=== PATIENT | male | born 1975 | race Caucasian/White ===

== ENCOUNTER 2018-08-23 22:59 | Emergency (ER) | payer OTHER ==
[~2018-08-23] VITALS: Ht 180.3 cm; Wt 108.2 kg
[2018-08-23 23:15] VITALS: Ht 180.3 cm; Wt 108.2 kg
[2018-08-24 00:02] LABS: HEMATOCRIT 43.5 % (42.0-54.0); HEMOGLOBIN 15.2 g/dL (13.5-17.5); LYMPHOCYTES 35.2 % (15-50); MCH 32.6 pg (26.0-34.0); MCHC 34.9 g/dL (31.0-37.0); MCV 93.3 fL (80.0-100.0); MEAN PLATELET VOLUME 9.6 fL (7.4-10.4); NEUTROPHILS 62.4 % (40-80); PLATELET COUNT 225 10x3/uL (130-400); RBC 4.66 10x6/uL (4.20-6.10); RDW 12.3 % (11.5-14.5); WBC 8.2 10x3/uL (4.8-10.8)
[2018-08-24 00:21] LABS: ALBUMIN 3.7 g/dL (3.4-5.0); ALKALINE PHOSPHATASE 61 U/L (46-116); ALT (SGPT) 50 U/L (10-68); CALC OSMOLALITY 279 mosm/kg (275-300); CALCIUM 9.1 mg/dL (8.5-10.1); CARBON DIOXIDE 25.2 mmol/L (21.0-32.0); CHLORIDE - SERUM 102 mmol/L (98-107); CKMB 1.1 U/L (0.0-3.6); CREATINE KINASE 304 UL (21-232); CREATININE - SERUM 1.1 mg/dL (0.6-1.3); GLUCOSE 119 mg/dL (74-106); POTASSIUM - SERUM 4.3 mmol/L (3.5-5.1); PROTEIN - SERUM 7.7 g/dL (6.4-8.2); SODIUM 139 mmol/L (136-145); TROPONIN-I < 0.017 ng/mL (0.000-0.060); UREA NITROGEN 16 mg/dL (7-18); eGFR NON AFRICAN AMERICAN 78 mL/min (90-120)
[2018-08-24 01:12] VITALS: BP 136/83
== END 2018-08-24 01:14 | disposition home or self-care (01) ==
LOC: D.ER 22:59
PROVIDERS: Family Medicine
DX: E86.0 Dehydration (principal); M94.0 Chondrocostal junction syndrome [Tietze]; R74.8 Abnormal levels of other serum enzymes; L55.0 Sunburn of first degree